=== PATIENT | female | born 1990 | race African-American/Black ===

== ENCOUNTER → 2021-06-08 09:38 | Outpatient (BNVA) | payer MEDICAID, SELFPAY | PROVIDERS: PCP Surgery; Visit Provider Physician Assistant Surgical | DX: Z13.89 Encounter for screening for other disorder (principal) ==

== ENCOUNTER → 2021-06-10 10:02 | Outpatient (BNVA) | payer MEDICAID, SELFPAY | PROVIDERS: PCP Internal Medicine; Visit Provider Physician Assistant Surgical | DX: E66.01 Morbid (severe) obesity due to excess calories (principal); Z68.41 Body mass index [BMI] 40.0-44.9, adult | CPT/HCPCS: 99202 ==

== ENCOUNTER 2021-06-21 08:21 | Outpatient (REF) | payer MEDICAID, SELFPAY ==
--- NOTE | ~2021-06-21 | XR_ITS ---
EXAMINATION: XR CHEST CLINICAL INFORMATION: Bariatric service evaluation. E66.01 COMPARISON: None TECHNIQUE: 2 views of the chest were obtained. FINDINGS: The lungs are clear. There is no airspace consolidation or groundglass opacity. The costophrenic sulci are clear. The heart is normal in size. The hilar and mediastinal contours are normal. There is gentle levocurvature lower thoracic spine. XR/XR chest 2V IMPRESSION: Unremarkable examination.
--- NOTE | 2021-06-21 08:46 | ECG_ITS ---
Test Reason : OBESITY Blood Pressure : / mmHG Vent. Rate : 073 BPM Atrial Rate : 073 BPM P-R Int : 158 ms QRS Dur : 070 ms QT Int : 370 ms P-R-T Axes : 024 044 -03 degrees QTc Int : 407 ms Normal sinus rhythm Normal ECG No previous ECGs available Referred By: Juarez Good Electronically Signed By:CAROLIN MENCHACA MD
[2021-06-21 09:07] LABS: MANUAL DIFF FLAG NO
[2021-06-21 09:43] LABS: Basophils Percent Auto 0.6 % (0-2); Eosinophils Absolute Auto 0.2 X10*3/uL (0.0-0.4); Hematocrit 35.4 % (37.0-47.0); Hemoglobin 12.6 g/dl (12.0-16.0); Imm Gran Abs Auto 0.01 X10*3/uL (0.00-0.03); Imm Gran Pct Auto 0.1 % (0.0-0.4); Lymphocytes Absolute Auto 2.9 X10*3/uL (1.2-4.9); Lymphocytes Percent Auto 40.2 % (20-40); Mean Corpuscular HGB Conc 35.6 g/dl (31.0-35.0); Mean Corpuscular Hemoglobin 26.5 pg (27.0-33.0); Mean Corpuscular Volume 74.5 fL (80.0-98.0); Monocytes Absolute Auto 0.6 X10*3/uL (0.1-1.2); Monocytes Percent Auto 8.9 % (2-11); Neutrophils Absolute Auto 3.4 x10*3/uL (2.0-8.3); Neutrophils Percent Auto 47.2 % (45-73); Platelet Count 258 X10*3/uL (160-400); Red Blood Count 4.75 X10*6/uL (4.20-5.50); Red Cell Distribution Width 13.7 % (11.0-16.0); White Blood Count 7.1 X10*3/uL (4.8-10.8)
[2021-06-21 10:07] LABS: Alanine Aminotransferase 14 U/L (0-31); Albumin Level 4.1 g/dL (3.5-5.0); Alkaline Phosphatase 48 U/L (39-117); Anion Gap 11 (12-20); Aspartate Amino Transferase 18 U/L (5-31); Bilirubin Total 0.5 mg/dL (0.0-1.0); Blood Urea Nitrogen 15 mg/dL (9-16); C Reactive Protein 0.52 mg/dL (< or = 0.50); Calcium 9.4 mg/dL (8.4-10.2); Carbon Dioxide 27 mmol/L (22-29); Chloride 105 mmol/L (96-108); Cholesterol 184 mg/dL; Estimated Glomerular Filt Rate > 60; Glucose Random 116 mg/dL (60-115); HDL Cholesterol 56 mg/dL; Iron 68 mcg/dL (30-160); LDL Cholesterol Calculated 111 mg/dl; Percent Iron Saturation 21 % (15-50); Potassium 4.1 mmol/L (3.3-5.1); Sodium 139 mmol/L (135-145); Total Iron Binding Capacity 317 mcg/dL (228-428); Total Protein 7.5 g/dL (6.5-8.0); Triglycerides 85 mg/dL; Unsaturated Iron Binding 249 ug/dL
[2021-06-21 10:36] LABS: Ferritin 140 ng/mL (10-122); TSH reflex Free T4 1.49 uIU/mL (0.32-4.0); Vitamin D 25-OH Total 25.5 ng/mL (>30)
[2021-06-21 10:44] LABS: Estimated Average Glucose 120 mg/dL; Hemoglobin A1c % 5.8 %
[2021-06-21 11:20] LABS: Insulin 23 uU/mL (2-29)
[2021-06-21 11:31] LABS: Folate 16.6 ng/mL (> or = 4.0); Vitamin B12 320 pg/mL (200-900)
[2021-06-22 12:37] LABS: Calcium (PTHI) 9.2 mg/dL (8.6-10.2); PTHI 46 pg/mL (16-77)
[2021-06-22 14:38] LABS: H Pylori Breath Test Negative (Negative)
[2021-06-25 06:11] LABS: Zinc 92 mcg/dL (60-130)
[2021-06-26 07:46] LABS: Vitamin B1 9 nmol/L (8-30)
[2021-06-29 17:32] LABS: Vitamin A 46 mcg/dL (38-98)
== END 2021-06-21 08:22 | disposition home or self-care (01) ==
LOC: HO.LAB 08:21
PROVIDERS: PCP Internal Medicine; Visit Provider Physician Assistant Surgical
DX: Z01.818 Encounter for other preprocedural examination (principal); E66.01 Morbid (severe) obesity due to excess calories
CPT/HCPCS: 36415; 71046; 80053; 80061; 82306; 82607; 82728; 82746; 83013; 83036; 83525; 83540; 83970; 84425; 84443; 84590; 84630; 85025; 86140; 93005; 99211

== ENCOUNTER → 2021-06-24 08:17 | Outpatient (BNVA) | payer MEDICAID, SELFPAY | PROVIDERS: PCP Internal Medicine; Visit Provider Surgery | DX: Z13.89 Encounter for screening for other disorder (principal) ==

== ENCOUNTER → 2021-06-29 16:07 | Outpatient (BNVA) | payer OTHER, MEDICAID, SELFPAY | PROVIDERS: PCP Internal Medicine; Visit Provider Counselor Mental Health | DX: F43.20 Adjustment disorder, unspecified (principal); E66.01 Morbid (severe) obesity due to excess calories | CPT/HCPCS: 90791 ==

== ENCOUNTER → 2021-06-30 08:36 | Outpatient (BNVA) | payer OTHER, MEDICAID, SELFPAY | PROVIDERS: PCP Internal Medicine; Visit Provider Surgery | DX: Z13.89 Encounter for screening for other disorder (principal) ==

== ENCOUNTER → 2021-07-09 07:57 | Outpatient (BNVA) | payer MEDICAID, SELFPAY | PROVIDERS: PCP Internal Medicine; Visit Provider Dietitian, Registered | DX: E66.01 Morbid (severe) obesity due to excess calories (principal) | CPT/HCPCS: 97802 ==

== ENCOUNTER → 2023-03-02 15:33 | Outpatient (BNVA) | payer OTHER, SELFPAY | PROVIDERS: PCP Internal Medicine; Visit Provider Physician Assistant Surgical ==

== ENCOUNTER 2023-03-24 08:11 | Outpatient (AMB) | payer OTHER, SELFPAY ==
--- NOTE | 2023-03-24 11:30 | MHC.OFFVISWM ---
Intake VS Expanded 03/24/23 11:39 Height 5 ft 5.5 in Weight 253 lb BMI 41.5 Body Fat % 43.6 Body Fat Mass 110.2 Fat Free Mass 142.6 Visceral Fat Rating 12 Body Water % 40.5 Body Water Mass 102.2 Basal Metabolic Rate/Score 2,015 Intake Visit Reasons: TV Re-Est SWL BMI 41.5 Allergies No Known Allergies Allergy (Verified 03/24/23 11:30) Medication List - Last Reconciled 03/24/23 by Murtaza Pelayo MD [id number] 600-50-300 mg (Triumeq) 1 tab PO DAILY HPI TV Re-Est SWL BMI 41.5 HPI Details Start time: 11.25am, End time: 12.05pm ?I spent 35 minutes speaking with the patient on the phone plus an additional 5 minutes reviewing and updating records for a total of 40 minutes HPI Comments History of Present Illness Details [place] [facility] Wakes: 9.30am, Sleeps: 1am Breakfast: 10am (sausage with eggs, waffles, wallisian toast) Lunch: 2pm (fast food, pizza, burger Dinner: 8pm (pasta with meat, salmon with mashed potatoes) Snacks: 12pm (cookies, gold fish), 4pm (cookies, gold fish) Exercise: gym membership Fluids: Coffee none, tea: none, soda: none, juice: daily (orange,lemonade), ETOH: 2/month (1-2 glases of wine) PFSH Surgical History (Updated 03/03/23 @ 08:13 by Rosie Engel [facility]) Hx of section Hx of dilation and curettage Family History Mother Migraines Father No problems noted. Sister Asthma Sister Asthma Sister Asthma Brother No problems noted. Brother No problems noted. Brother Asthma Son No problems noted. Social History Alcohol intake: current Alcohol intake frequency: a few times a month Patient Tobacco Use Status: Former Tobacco user Assessment & Plan Assessment & Plan (1) Morbid obesity: Code(s): E66.01 - Morbid (severe) obesity due to excess calories Plan: 1.? Plan for lap sleeve gastrectomy. If diaphragmatic or ventral hernias are present at time of surgery, these will be repaired laparoscopically as well. Risks and complications were discussed in detail including possible conversion to an open procedure, anastomotic leak, bleeding requiring transfusion, small bowel obstruction, , DVT and pulmonary embolism, cardiac, or pulmonary complications, as watermaster complications such as anastomotic ulcer, insufficient weight loss and vitamin deficiencies. I emphasized the importance of close follow-up, adherence to instructions and good communication. 2. Nutritional counseling. Start with 2 Isopure INFUSIONS protein (buy at [employer], [place], [employer], [employer]) shakes (HALF scoop in 8oz water) at 10am-12pm and 1pm-3pm, 1 protein bar (Zone Perfect protein bars, buy at [employer], [employer], [employer], or [employer]) at 4pm-6pm, dinner at 7pm (10 forks of protein and 10 forks of salad/vegetables), one more protein bar after dinner at 9pm-11pm and another HALF protein bar at 12am-1am. So you do 2 protein shakes, 2.5 protein bars and one meal per day. Meal to include lean meat (beef, fish, pork, turkey, chicken), or maori yogurt, or egg whites, or beans with a salad with olive oil and fruits (berries, pears, apples, kiwi). Avoid salt, breads, potatoes, rice, pasta, desserts. 3. Each shake would be drunk slowly, like coffee in a period of 2 hours. 4. Cut each bar in 4 pieces and eat each piece in 30min ?to make each bar last 2 hours. 5. I emphasized the importance of measuring accurately the food portion and measure it when serving the food in plate 6. The meal portions include 10 full-size forks of meat and 10 full-size forks of salad. You always eat the meat portion but you can replace up to 5 forks for salad/vegetables with rice, potatoes or pasta, or a fruit ?if you like. The less you do it the better weight loss will be. 7. One full-size fork is what it can be scooped on the fork without falling aside and not what can be bit with the fork. Use regular forks like those you find in a typical restaurant. 8.? Please send me weight measurements as soon as possible and then once a week. Always include your diet and exercise plan. 9. Start treadmill with an incline of 2.0 and speed of 3.0. Increase incline by 1 every 3 min to a max incline of 8.0, stay 3min at 8.0 and then return to 2.0 and repeat same steps until calorie goal is met. Goal is to burn 2000 calories per week on exercise, which means either 300 calories daily, or 400 calories 5 days per week, or 500 calories 4 days per week, or 650 calories 3 days per week. Start also weight exercises with 20-30lbs for chest/shoulders/abdomen and 40-50lbs for thighs doing 2 sets of 15 repetitions each. 10. Alternatively start stationary bike at a resistance level of 4.0 Increase level by 1.0 every 3 min to a max level of 10.0. Stay at this level for 3 min and then return to level 4.0 and repeat same steps until 300 calories are burned. Velocity target is 12mph and heart rate is 145 bpm. Goal is to burn 2000 calories per week on exercise 11. The best choice would be to purchase a stationary bike at home that can track calories. Let me know if you do so I can give you an exercise plan. 12.?It is important of avoiding and for at least 18 months postoperatively and has been discussed at the infosession. 13. Goal is to lose at least 1.5-2lbs per week 14. Goal to lose 10% of your weight before surgery, which is about 25lbs. Ultimate weight goal: 228lbs before surgery 15. Please follow the diet plan exactly without any change. If you don't like something about the plan or you feel hungry you need to communicate with me so I can help you revise the plan. You should not change the plan yourself. Orders: Orders Hemoglobin A1c Today B20 - Human immunodeficiency virus [HIV] disease, E66.01 - Morbid (severe) obesity due to excess calories H Pylori Breath Test Today B20 - Human immunodeficiency virus [HIV] disease, E66.01 - Morbid (severe) obesity due to excess calories Complete Blood Count Auto Diff Today B20 - Human immunodeficiency virus [HIV] disease, E66.01 - Morbid (severe) obesity due to excess calories Lipid Panel Today B20 - Human immunodeficiency virus [HIV] disease, E66.01 - Morbid (severe) obesity due to excess calories Vitamin B12 and Folate Today B20 - Human immunodeficiency virus [HIV] disease, E66.01 - Morbid (severe) obesity due to excess calories Zinc Today B20 - Human immunodeficiency virus [HIV] disease, E66.01 - Morbid (severe) obesity due to excess calories C Reactive Protein Today B20 - Human immunodeficiency virus [HIV] disease, E66.01 - Morbid (severe) obesity due to excess calories Vitamin B1 Today B20 - Human immunodeficiency virus [HIV] disease, E66.01 - Morbid (severe) obesity due to excess calories Vitamin A Today B20 - Human immunodeficiency virus [HIV] disease, E66.01 - Morbid (severe) obesity due to excess calories Vitamin D 25-OH Total Today B20 - Human immunodeficiency virus [HIV] disease, E66.01 - Morbid (severe) obesity due to excess calories US abdomen comp w elastography Today B20 - Human immunodeficiency virus [HIV] disease, E66.01 - Morbid (severe) obesity due to excess calories ECG 12 lead EKG Today B20 - Human immunodeficiency virus [HIV] disease, E66.01 - Morbid (severe) obesity due to excess calories Insulin Today B20 - Human immunodeficiency virus [HIV] disease, E66.01 - Morbid (severe) obesity due to excess calories IRON PROFILE Today B20 - Human immunodeficiency virus [HIV] disease, E66.01 - Morbid (severe) obesity due to excess calories Comprehensive Met. Panel Today B20 - Human immunodeficiency virus [HIV] disease, E66.01 - Morbid (severe) obesity due to excess calories TSH reflex Free T4 Today B20 - Human immunodeficiency virus [HIV] disease, E66.01 - Morbid (severe) obesity due to excess calories Ferritin Today B20 - Human immunodeficiency virus [HIV] disease, E66.01 - Morbid (severe) obesity due to excess calories XR chest 2V Today B20 - Human immunodeficiency virus [HIV] disease, E66.01 - Morbid (severe) obesity due to excess calories FL upper GI w air Today B20 - Human immunodeficiency virus [HIV] disease, E66.01 - Morbid (severe) obesity due to excess calories Referrals Behavioral Health Referral B20 - Human immunodeficiency virus [HIV] disease, E66.01 - Morbid (severe) obesity due to excess calories Nutrition/Dietitian Referral B20 - Human immunodeficiency virus [HIV] disease, E66.01 - Morbid (severe) obesity due to excess calories Telehealth Telehealth Location of provider rendering services: practice address Location of patient: address on file Patient Identification confirmed using: Name, : Yes Telehealth method: voice only Patient verbally consented to treatment: Yes Patient verbally consented to billing insurance company: Yes Patient informed of any privacy concerns related to visit: Yes Minutes spent on Phone/Video with Pt.: 40 Coding Level of Care Code Tele New Pt Level 3 (08939) Diagnoses Morbid obesity E66.01 Time Spent (min) 40
[2023-03-24 11:39] VITALS: BMI 41.5
== END 2023-03-24 12:06 | disposition home or self-care (01) ==
LOC: HO.HBS 08:11
PROVIDERS: PCP Internal Medicine; Visit Provider Surgery
DX: E66.01 Morbid (severe) obesity due to excess calories (principal)
CPT/HCPCS: 99215

== ENCOUNTER → 2023-03-24 08:11 | Outpatient (BNVA) | payer OTHER, SELFPAY | PROVIDERS: PCP Internal Medicine; Visit Provider Surgery ==

== ENCOUNTER 2023-04-07 15:11 | Outpatient (REF) | payer OTHER, SELFPAY ==
--- NOTE | ~2023-04-07 | XR_ITS ---
EXAMINATION: XR CHEST CLINICAL INFORMATION: Morbid obesity did access catheters. COMPARISON: June 21, 2021. TECHNIQUE: 2 views of the chest were obtained. FINDINGS: Lung volumes are low. There is no gross pneumothorax. Heart size is normal. No pleural effusion. No focal consolidation to suggest pneumonia. Minimal degenerative changes in the thoracic spine. XR/XR chest 2V IMPRESSION: No evidence of pneumonia.
--- NOTE | 2023-04-07 15:16 | ECG_ITS ---
Test Reason : MORBID OBESITY Blood Pressure : / mmHG Vent. Rate : 082 BPM Atrial Rate : 082 BPM P-R Int : 162 ms QRS Dur : 070 ms QT Int : 358 ms P-R-T Axes : 022 052 -11 degrees QTc Int : 418 ms Normal sinus rhythm Nonspecific T wave abnormality Abnormal ECG When compared with ECG of 21-JUN-2021 08:46, No significant change was found Referred By: Murtaza Pelayo Electronically Signed By:Sascha Joyner
[2023-04-07 15:35] LABS: MANUAL DIFF FLAG NO
[2023-04-07 16:25] LABS: Basophils Absolute Auto 0.1 X10*3/uL (0.0-0.2); Basophils Percent Auto 0.8 % (0-2); Eosinophils Absolute Auto 0.3 X10*3/uL (0.0-0.4); Eosinophils Percent Auto 3.7 % (0-4); Hematocrit 38.2 % (37.0-47.0); Hemoglobin 13.4 g/dl (12.0-16.0); Imm Gran Abs Auto 0.02 X10*3/uL (0.00-0.03); Imm Gran Pct Auto 0.2 % (0.0-0.4); Lymphocytes Absolute Auto 3.9 X10*3/uL (1.2-4.9); Lymphocytes Percent Auto 42.4 % (20-40); Mean Corpuscular HGB Conc 35.1 g/dl (31.0-35.0); Mean Corpuscular Hemoglobin 25.9 pg (27.0-33.0); Mean Corpuscular Volume 73.7 fL (80.0-98.0); Mean Platelet Volume 10.2 fL (9.4-12.3); Monocytes Absolute Auto 0.7 X10*3/uL (0.1-1.2); Monocytes Percent Auto 7.4 % (2-11); Neutrophils Absolute Auto 4.2 x10*3/uL (2.0-8.3); Neutrophils Percent Auto 45.5 % (45-73); Platelet Count 311 X10*3/uL (160-400); Red Blood Count 5.18 X10*6/uL (4.20-5.50); Red Cell Distribution Width 13.3 % (11.0-16.0); White Blood Count 9.2 X10*3/uL (4.8-10.8)
[2023-04-07 16:34] LABS: Estimated Average Glucose 114 mg/dL; Hemoglobin A1c % 5.6 % (<6.0)
[2023-04-07 17:09] LABS: Alanine Aminotransferase 14 U/L (0-31); Albumin Level 4.4 g/dL (3.5-5.0); Alkaline Phosphatase 57 U/L (39-117); Anion Gap 13 (12-20); Aspartate Amino Transferase 16 U/L (5-31); Bilirubin Total 0.4 mg/dL (0.0-1.0); Blood Urea Nitrogen 10 mg/dL (9-16); C Reactive Protein 0.78 mg/dL (< or = 0.50); Calcium 9.5 mg/dL (8.4-10.2); Carbon Dioxide 26 mmol/L (22-29); Chloride 106 mmol/L (96-108); Cholesterol 193 mg/dL (<200); Estimated Glomerular Filt Rate > 60; Glucose Random 106 mg/dL (60-115); HDL Cholesterol 56 mg/dL (>40); Iron 71 mcg/dL (30-160); LDL Cholesterol Calculated 118 mg/dL (<100); Percent Iron Saturation 26 % (15-50); Potassium 3.7 mmol/L (3.3-5.1); Sodium 141 mmol/L (135-145); Total Iron Binding Capacity 277 mcg/dL (228-428); Total Protein 8.1 g/dL (6.5-8.0); Triglycerides 97 mg/dL (<150); Unsaturated Iron Binding 206 ug/dL
[2023-04-07 17:27] LABS: Ferritin 209 ng/mL (10-122); Insulin 18 uU/mL (2-29); TSH reflex Free T4 0.62 uIU/mL (0.32-4.0); Vitamin D 25-OH Total 18.1 ng/mL (>30)
[2023-04-07 17:36] LABS: Folate 10.8 ng/mL (> or = 4.0); Vitamin B12 443 pg/mL (200-900)
[2023-04-10 16:53] LABS: Zinc 93 mcg/dL (60-130)
[2023-04-11 20:09] LABS: Vitamin A 51 mcg/dL (38-98)
[2023-04-13 06:04] LABS: Vitamin B1 12 nmol/L (8-30)
== END 2023-04-07 15:12 | disposition home or self-care (01) ==
LOC: HO.XRAY 15:11
PROVIDERS: Visit Provider Surgery
DX: E66.01 Morbid (severe) obesity due to excess calories (principal); B20 Human immunodeficiency virus [HIV] disease
CPT/HCPCS: 36415; 71046; 80053; 80061; 82306; 82607; 82728; 82746; 83036; 83525; 83540; 84425; 84443; 84590; 84630; 85025; 86140; 93005

== ENCOUNTER → 2023-04-07 15:16 | Outpatient (BNV) | payer OTHER, SELFPAY | PROVIDERS: Visit Provider Internal Medicine Cardiovascular Disease | DX: R94.31 Abnormal electrocardiogram [ECG] [EKG] (principal) | CPT/HCPCS: 93010 ==

== ENCOUNTER 2023-04-11 14:00 | Outpatient (REF) | payer OTHER, SELFPAY ==
[2023-04-13 11:37] LABS: H Pylori Breath Test Negative (Negative)
== END 2023-04-11 14:01 | disposition home or self-care (01) ==
LOC: HO.LNP 14:00
PROVIDERS: Surgery; PCP Internal Medicine; Visit Provider Physician Assistant Surgical
DX: Z11.2 Encounter for screening for other bacterial diseases (principal); E66.01 Morbid (severe) obesity due to excess calories; B20 Human immunodeficiency virus [HIV] disease
CPT/HCPCS: 83013; 99211

== ENCOUNTER 2023-04-17 08:11 | Outpatient (AMB) | payer OTHER, SELFPAY ==
--- NOTE | 2023-04-17 12:15 | MHC.OFFVISWM ---
Intake VS Expanded 04/17/23 12:24 Height 5 ft 5.5 in Weight 250 lb 6 oz BMI 41.0 Body Fat % 54.2 Body Fat Mass 135.8 Fat Free Mass 114.8 Visceral Fat Rating 22 Body Water % 31.4 Body Water Mass 78.6 Intake Visit Reasons: TV Follow Up SWL - 1ST Allergies No Known Allergies Allergy (Verified 03/24/23 11:30) HPI TV Follow Up SWL - 1ST HPI Details Start time: 12.10pm, End time: 12.30pm ?I spent 15 minutes speaking with the patient on the phone plus an additional 5 minutes reviewing and updating records for a total of 20 minutes HPI Comments History of Present Illness Details Overall weight loss: 2.4lbs, or 0.95% TBWL Is doing 2 Isopure Infusions protein shakes (1/2 scoop in water), 2.5 Zone Perfect protein bars and one meal (10 forks of protein and 10 forks of salad or vegetables) Exercise: Is doing Cycling classes PFSH Surgical History (Updated 03/03/23 @ 08:13 by Rosie Engel [facility]) Hx of section Hx of dilation and curettage Family History Mother Migraines Father No problems noted. Sister Asthma Sister Asthma Sister Asthma Brother No problems noted. Brother No problems noted. Brother Asthma Son No problems noted. Social History Alcohol intake: current Alcohol intake frequency: a few times a month Patient Tobacco Use Status: Former Tobacco user Assessment & Plan Assessment & Plan (1) Morbid obesity: Code(s): E66.01 - Morbid (severe) obesity due to excess calories Plan: 1. Continue same nutritional plan of re Infusions protein shakes (1/2 scoop in water), 2.5 Zone Perfect protein bars and one meal (10 forks of protein and 10 forks of salad or vegetables) 2. Exercise: continue Cycling classes 3 days per week , tracking the calories you burn for at least 500 calories per work-out 3. Consider purchasing a stationary bike at home because it will allow you to exercise daily 4. Continue to send me weight measurements weekly on Telehealth Telehealth Location of provider rendering services: practice address Location of patient: address on file Patient Identification confirmed using: Name, : Yes Telehealth method: voice only Patient verbally consented to treatment: Yes Patient verbally consented to billing insurance company: Yes Patient informed of any privacy concerns related to visit: Yes Coding Level of Care Code Tele Est Pt Level 3 (74980) Diagnoses Morbid obesity E66.01 Time Spent (min) 20
[2023-04-17 12:24] VITALS: BMI 41.0
== END 2023-04-17 12:30 | disposition home or self-care (01) ==
LOC: HO.HBS 08:12
PROVIDERS: PCP Internal Medicine; Visit Provider Surgery
DX: E66.01 Morbid (severe) obesity due to excess calories (principal)
CPT/HCPCS: 99213

== ENCOUNTER → 2023-04-17 08:11 | Outpatient (BNVA) | payer OTHER, SELFPAY | PROVIDERS: PCP Internal Medicine; Visit Provider Surgery ==

== ENCOUNTER 2023-04-21 15:44 | Outpatient (AMB) | payer OTHER, SELFPAY ==
--- NOTE | 2023-04-21 15:22 | MHC.AMNUTRGE ---
Intake Intake Visit Reasons: VIDEO Re-Est Nutrition Initial SWL Allergies No Known Allergies Allergy (Verified 03/24/23 11:30) HPI Nutrition Presentation Details Re-EST SWL - last nutrition appt in June 2021 Reason for consult elevated BMI Diet Assmnt Details Doing the bars and shakes (isopure infusions) ; is really happy with this and has no complaints. is creative with dinner meals, stuffed peppers, taco bowls, lettuce wraps, etc. interested in more recipes. ordered a stationary bike, will be delivered this coming week SWL online classes: completed , reviewed . has a close friend who works at [facility] and had surgery with us recently. Dietary counseling reduction Diagnosis Nutrition problem #1 overweight/obesity As related to (etiology) #1 excess energy intake and physical inactivity As evidenced by (sign/symptom) #1 high BMI Monitoring/Goals Nutrition problem monitoring total energy intake, level of knowledge/skill, total PRO intake, total CHO intake and weight Outcome progress progressing Learning/Education Readiness to learn good Stages of change action Educational materials provided Yes Most Recent Diabetes Results: Cholesterol 193 mg/dL (<200) 04/07/23 HDL Cholesterol 56 mg/dL (>40) 04/07/23 Triglycerides 97 mg/dL (<150) 04/07/23 Creatinine 0.85 mg/dL (0.5-1.4) 04/07/23 Blood Urea Nitrogen 10 mg/dL (9-16) 04/07/23 Sodium 141 mmol/L (135-145) 04/07/23 Potassium 3.7 mmol/L (3.3-5.1) 04/07/23 Chloride 106 mmol/L (96-108) 04/07/23 Carbon Dioxide 26 mmol/L (22-29) 04/07/23 Calcium 9.5 mg/dL (8.4-10.2) 04/07/23 AST 16 U/L (5-31) 04/07/23 ALT 14 U/L (0-31) 04/07/23 Total Protein 8.1 g/dL (6.5-8.0) H 04/07/23 Albumin 4.4 g/dL (3.5-5.0) 04/07/23 PFSH Surgical History (Updated 03/03/23 @ 08:13 by Rosie Engel CMA) Hx of section Hx of dilation and curettage Family History Mother Migraines Father No problems noted. Sister Asthma Sister Asthma Sister Asthma Brother No problems noted. Brother No problems noted. Brother Asthma Son No problems noted. Social History Alcohol intake: current Alcohol intake frequency: a few times a month Patient Tobacco Use Status: Former Tobacco user Assessment & Plan Assessment & Plan (1) Morbid obesity: Code(s): E66.01 - Morbid (severe) obesity due to excess calories Plan pt is cleared from a nutrition standpoint for bariatric surgery Telehealth Telehealth Location of provider rendering services: other (home address , [facility] ) Location of patient: address on file Patient Identification confirmed using: Name, : Yes Telehealth method: voice only Patient verbally consented to treatment: Yes Patient verbally consented to billing insurance company: Yes Patient informed of any privacy concerns related to visit: Yes Minutes spent on Phone/Video with Pt.: 20 Coding Level of Care Code Nutr Indiv Intake (02033) Diagnoses Morbid obesity E66.01 Time Spent (min) 20
== END 2023-04-21 16:00 | disposition home or self-care (01) ==
LOC: HO.HBS 15:45
PROVIDERS: PCP Internal Medicine; Visit Provider Dietitian, Registered
DX: E66.01 Morbid (severe) obesity due to excess calories (principal)

== ENCOUNTER → 2023-04-21 15:44 | Outpatient (BNVA) | payer OTHER, SELFPAY | PROVIDERS: PCP Internal Medicine; Visit Provider Dietitian, Registered | DX: E66.01 Morbid (severe) obesity due to excess calories (principal) | CPT/HCPCS: 97802 ==

== ENCOUNTER 2023-05-15 08:19 | Outpatient (AMB) | payer OTHER, SELFPAY ==
--- NOTE | 2023-05-15 13:49 | A.OFFVIS_ITS ---
Intake VS Expanded 05/15/23 13:59 Height 5 ft 5.5 in Weight 242 lb 6 oz BMI 39.7 Body Fat % 52.1 Body Fat Mass 126.3 Fat Free Mass 116.2 Visceral Fat Rating 21 Body Water % 32.8 Body Water Mass 79.5 Basal Metabolic Rate/Score 1,518 Intake Visit Reasons: TV Follow Up SWL Allergies No Known Allergies Allergy (Verified 03/24/23 11:30) HPI TV Follow Up SWL HPI Details Start time: 11.42pm, End time: 2.02pm ?I spent 15 minutes speaking with the patient on the phone plus an additional 5 minutes reviewing and updating records for a total of 20 minutes HPI Comments History of Present Illness Details Overall weight loss: 10.4lbs, or 4.11% TBWL) Is doing 2 Isopure Infusions protein shakes (1/2 scoop each in water), 2 Zone Perfect protein bars and on meal (10 forks of protein and 10 forks of salad or vegetables) Exercise: is doing treadmill (speed 3mph, incline 2-8) for 240 calories daily PFSH Surgical History (Updated 03/03/23 @ 08:13 by Rosie Engel CMA) Hx of section Hx of dilation and curettage Family History Mother Migraines Father No problems noted. Sister Asthma Sister Asthma Sister Asthma Brother No problems noted. Brother No problems noted. Brother Asthma Son No problems noted. Social History Alcohol intake: current Alcohol intake frequency: a few times a month Patient Tobacco Use Status: Former Tobacco user Assessment & Plan Assessment & Plan (1) Obesity: Code(s): E66.9 - Obesity, unspecified Qualifiers: Obesity type: due to excess calories Obesity classification: adult class 2 (BMI 35 - 39.9) Serious obesity comorbidity presence: with serious comorbidity Body mass index: BMI 39.0-39.9 Qualified Code(s): E66.01 - Morbid (severe) obesity due to excess calories; Z68.39 - Body mass index [BMI] 39.0- 39.9, adult Plan: 1. Continue same nutritional plan of 2 Isopure Infusions protein shakes (1/2 scoop each in water), 2 Zone Perfect protein bars and on meal (10 forks of protein and 10 forks of salad or vegetables) 2. Exercise: continue treadmill (speed 3mph, incline 2-8) but increase to 300 calories daily. Goal is to burn 2000 calories per week on aerobic exercise 3. Send me weight measurements weekly on Mondays Telehealth Telehealth Location of provider rendering services: practice address Location of patient: address on file Patient Identification confirmed using: Name, : Yes Telehealth method: voice only Patient verbally consented to treatment: Yes Patient verbally consented to billing insurance company: Yes Patient informed of any privacy concerns related to visit: Yes Minutes spent on Phone/Video with Pt.: 20 Coding Level of Care Code Tele Est Pt Level 3 (30567) Diagnoses Class 2 severe obesity due to excess calories with serious comorbidity and body mass index (BMI) of 39.0 to 39.9 in adult E66.01; Z68.39 Obesity type: due to excess calories Obesity classification: adult class 2 (BMI 35 - 39.9) Serious obesity comorbidity presence: with serious comorbidity Body mass index: BMI 39.0-39.9 Time Spent (min) 20
[2023-05-15 13:59] VITALS: BMI 39.7
== END 2023-05-15 14:03 | disposition home or self-care (01) ==
LOC: HO.HBS 08:19
PROVIDERS: PCP Internal Medicine; Visit Provider Surgery
DX: E66.01 Morbid (severe) obesity due to excess calories (principal); Z68.39 Body mass index [BMI] 39.0-39.9, adult
CPT/HCPCS: 99213

== ENCOUNTER 2023-05-15 08:55 | Outpatient (REF) | payer OTHER, SELFPAY ==
--- NOTE | ~2023-05-15 | US_ITS ---
EXAMINATION: US COMPLETE ABDOMEN WITH LIVER ELASTOGRAPHY CLINICAL INFORMATION: Morbid (severe) obesity COMPARISON: None available. TECHNIQUE: Real-time imaging of the abdominal viscera. Noninvasive ultrasound liver fibrosis assessment is performed using Damian ElastPQ point quantification shear wave elastography (2D-SWE) with a C5-2 MHz transducer. Multiple elastography samples are obtained. FINDINGS: PANCREAS: The visualized pancreatic head and body are normal in appearance. The remainder of the pancreas is obscured from visualization by the overlying bowel gas. ABDOMINAL AORTA: The proximal, middle, and distal aortic segments are normal in caliber. INFERIOR VENA CAVA: Visualized portions are normal. LIVER: The liver demonstrates normal size and contour with increased echogenicity. No focal lesion or intrahepatic biliary duct dilatation. The right lobe measures 16.1 cm in length. The left lobe measures 12.4 cm in length. Portal flow is towards the liver (hepatopetal). Shear wave liver elastography median stiffness is 1.61 m/s (reference: normal median stiffness is 1.3 m/s or less). IQR/median stiffness to assess sampling precision is 0.09 (reference: good quality data set is IQR/median stiffness of 0.15 or less). GALLBLADDER: The gallbladder is physiologically distended without evidence of stones, sludge, polyps, wall thickening or pericholecystic fluid. COMMON BILE DUCT: Normal in caliber measuring 0.2 cm in diameter. RIGHT KIDNEY: No hydronephrosis. No renal calculi or focal parenchymal lesions. The kidney measures 10.9 cm in maximum dimension. LEFT KIDNEY: No hydronephrosis. No renal calculi or focal parenchymal lesions. The kidney measures 12.2 cm in maximum dimension. SPLEEN: The spleen measures 10.3 cm in maximum dimension. FREE FLUID: None. US/US abdomen comp w elastography IMPRESSION: 1. Diffuse increased echogenicity of the liver suggestive of infiltrative hepatocellular disease such as steatosis. 2. Liver elastography: In the absence of other known clinical signs, measurements rule out compensated advanced chronic liver disease. If there are known clinical signs, further testing may be needed for confirmation. REFERENCE: Society of Radiologists in Ultrasound Liver Stiffness Thresholds (2020): LIVER STIFFNESS THRESHOLDS: *Liver Stiffness equal or less than 1.3 m/s: High probability of being normal. *Liver Stiffness less than 1.7 m/s: In the absence of other known clinical signs, rules out compensated advanced chronic liver disease. *Liver Stiffness 1.7-2.1 m/s: Suggestive of compensated advanced chronic liver disease but need further test for confirmation. *Liver Stiffness over 2.1 m/s: Rules in compensated advanced chronic liver disease. *Liver Stiffness over 2.4 m/s: Suggestive of clinically significant portal hypertension. QUALITY OF DATA SET: *IQR/Median value equal or less than 0.15 implies a quality data set. *IQR/Median value over 0.15 implies a poor quality data set. SIGNIFICANT CHANGE FROM PRIOR EXAM: Significant change if liver stiffness measurement is 10% or greater from prior exam. OTHER CONSIDERATIONS: The stage of liver fibrosis may be overestimated in the setting of acute hepatitis, liver inflammation, elevated liver function tests, hepatic vascular congestion, obstructive cholestasis, non-fasting state, and infiltrative diseases such as amyloidosis and lymphoma. In some patients with NAFLD, the liver stiffness thresholds for compensated advanced chronic liver disease may be lower. In causes other than viral hepatitis and NAFLD, liver stiffness thresholds are not well established.
--- NOTE | 2023-05-15 08:59 | CA_ITS ---
Acquisition Time: 2023-05-15 09:09:08 Total Exercise Time: 00:05:31 Test Indications: OBESITY Medications: SEE H Protocol: HUBERT Max HR: 160 BPM 86% of Pred: 185 BPM Max BP: 164/084 mmHG Max Work Load: 7.0 METS Exercise stress test exercise 5 min 31 sec of Hubert protocol achieving 86%, with mild to moderate SOB, without chest discomfort, with isolated PAC, with normotensive response to exercise. without EKG changes. Breathing returned to baseline with rest. Test reviewed with Dr. Joyner. Referred By: Murtaza Pelayo Overread By: Xiao Roman
== END 2023-05-15 08:56 | disposition home or self-care (01) ==
LOC: HO.US 08:55
PROVIDERS: PCP Internal Medicine; Visit Provider Surgery
DX: E66.01 Morbid (severe) obesity due to excess calories (principal); B20 Human immunodeficiency virus [HIV] disease; R94.31 Abnormal electrocardiogram [ECG] [EKG]
CPT/HCPCS: 76700; 76981; 93017

== ENCOUNTER → 2023-05-15 08:59 | Outpatient (BNV) | payer OTHER, SELFPAY | PROVIDERS: PCP Internal Medicine; Visit Provider Nurse Practitioner | DX: R06.02 Shortness of breath (principal); I49.1 Atrial premature depolarization | CPT/HCPCS: 93016; 93018 ==

== ENCOUNTER 2023-05-19 09:09 | Outpatient (REF) | payer OTHER, SELFPAY ==
--- NOTE | ~2023-05-19 | FL_ITS ---
EXAMINATION: XR FLUOROSCOPY UPPER GI WITH AIR CLINICAL INFORMATION: Preop evaluation prior to bariatric surgery COMPARISON: None TECHNIQUE: Fluoroscopic air contrast upper GI examination was performed utilizing standard techniques with thin and thick barium and effervescent granules. Numerous spot images were obtained. FINDINGS: Dual and single contrast images of the esophagus demonstrate normal caliber, contour, and mucosal pattern. No evidence of stricture, mass, or ulcerations identified. Esophageal peristalsis is mildly disorganized. Small type I hiatus hernia. Gastroesophageal reflux is seen up to the thoracic inlet. Dual contrast and single contrast images of the stomach demonstrated a normal contour. There are multiple small well-circumscribed filling defects in the gastric body and fundus that may represent gastric polyps. No masses or ulcerations are seen. Contrast freely passed into the gastric antrum and duodenal bulb without delay. 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 There appeared to be at least one rounded filling defect in the first segment of the duodenum (RF 1-7, image 17 of 47), and possibly 2 additional rounded filling defects in the third and fourth segments (RF 1-8, image 21 of 67; RF 1-7, image 35 of 47). Duodenal folds appear thickened. The imaged proximal jejunum has a normal fold pattern and caliber. FLUOROSCOPY TIME: 3 minutes 15 seconds Number of Spot Images: 9 Number of Cine: 12 DOSE AREA PRODUCT: 2680 uGy-m2 (microgray-meter squared) FL/FL upper GI w air IMPRESSION: 1. Mildly disorganized esophageal peristalsis. Small type I hiatus hernia. 2. Moderate gastroesophageal reflux. 3. Multiple small well-circumscribed filling defects in the body and fundus of the stomach that may represent hyperplastic polyps. 4. Possible cloverleaf configuration of the duodenal bulb secondary to scarring, possibly from peptic disease. 5. There appear to be 3 duodenal filling defects involving the duodenal sweep, suggestive of underlying masses. There is a broad differential to include lipomas, adenomas and villous adenomas, adenomatous polyps, adenocarcinoma, GI stromal tumors, or possibly metastases (such as neuroendocrine). Recommend correlation with EGD. If this is inconclusive, cross-sectional imaging with CT could also be of benefit with IV and oral contrast. 6. Thickened duodenal folds suggested, for which peptic disease/duodenitis is a possibility, as well as Crohn's disease. If the patient is immunocompromised, this can be seen with Cryptosporidium and CMV infection. This procedure was performed by Tim Contreras PA-C, and supervised by Dr. Roman
== END 2023-05-19 09:10 | disposition home or self-care (01) ==
LOC: HO.XRAY 09:09
PROVIDERS: PCP Internal Medicine; Visit Provider Surgery
DX: E66.01 Morbid (severe) obesity due to excess calories (principal); B20 Human immunodeficiency virus [HIV] disease
CPT/HCPCS: 74246

== ENCOUNTER → 2023-05-19 09:12 | Outpatient (BNV) | payer OTHER, SELFPAY | PROVIDERS: PCP Internal Medicine; Visit Provider Physician Assistant Surgical | DX: E66.01 Morbid (severe) obesity due to excess calories (principal); Z01.818 Encounter for other preprocedural examination | CPT/HCPCS: 74246 ==

== ENCOUNTER 2023-06-19 09:08 | Outpatient (AMB) | payer OTHER, SELFPAY ==
--- NOTE | 2023-06-19 14:36 | A.OFFVIS_ITS ---
VS Expanded 06/19/23 14:49 Height 5 ft 5.5 in Weight 246 lb 2 oz BMI 40.3 Body Fat % 53.1 Body Fat Mass 130.7 Fat Free Mass 115.4 Visceral Fat Rating 22 Body Water % 32.2 Body Water Mass 79.2 Basal Metabolic Rate/Score 1,496 Intake Visit Reasons: TV Follow Up SWL Allergies No Known Allergies Allergy (Verified 03/24/23 11:30) HPI HPI TV Follow Up SWL: Details: Start time: 2.28pm, End time: 2.58pm ?I spent 25 minutes speaking with the patient on the phone plus an additional 5 minutes reviewing and updating records for a total of 30 minutes HPI Comments Details: Overall weight loss: 6.8lbs, or 2.69% TBWL Is doing one Isopure protein shake (1/2 scoop in water), 2 Zone Perfect protein bars, one meal (10 forks of protein and 10 forks of salad or vegetables) Exercise: is doing stationary bike for 300 calories PFSH Surgical History (Updated 03/03/23 @ 08:13 by Rosie Engel CMA) Hx of section Hx of dilation and curettage Family History Mother Migraines Father No problems noted. Sister Asthma Sister Asthma Sister Asthma Brother No problems noted. Brother No problems noted. Brother Asthma Son No problems noted. Social History Alcohol intake: current Alcohol intake frequency: a few times a month Patient Tobacco Use Status: Former Tobacco user Telehealth Telehealth Telehealth Platform: Telephone Location of provider rendering services: practice address Location of patient: address on file Patient Identification confirmed using: Name, : Yes Telehealth method: voice only Patient verbally consented to treatment: Yes Patient verbally consented to billing insurance company: Yes Patient informed of any privacy concerns related to visit: Yes Minutes spent on Phone/Video with Pt.: 30 Assessment & Plan Assessment & Plan (1) Morbid obesity: Code(s): E66.01 - Morbid (severe) obesity due to excess calories Category: Medical Plan: 1. Plan for lap sleeve gastrectomy including upper GI endoscopy. All tests has been completed and reviewed and the patient is cleared for the surgery. ?If diaphragmatic or ventral hernias are present at time of surgery, these will be repaired laparoscopically as well. Risks and complications were discussed in detail including possible conversion to an open procedure, anastomotic leak, bleeding requiring transfusion, small bowel obstruction, , DVT and pulmonary embolism, cardiac, or pulmonary complications, as adjunct faculty for medical terminology complications such as anastomotic ulcer, insufficient weight loss and vitamin deficiencies. I emphasized the importance of close follow-up, adherence to instructions and good communication. So far she has proven to be an excellent communicator and very compliant with all our directions accomplishing a great weight loss. I believe that she is an excellent candidate and she is ready. 2. The patient participated in a structured preoperative lifestyle intervention program supervised by a physician the 3 months preceding the surgical procedure. The lifestyle intervention included a structured nutritional plan with a specific daily protein intake goal, an exercise plan with a 2000 calorie burn weekly goal, weekly behavior modification guidance and completion of eight 1- hour online nutritional classes and passing successfully the corresponding quizzes. Adherence to preoperative care plan was demonstrated by completing an extensive preoperative work-up. Program participation was demonstrated by completing 4 visits with our medical team and by sharing weekly weight measurements weekly for 4 consecutive months via an approved body composition scale. Compliance to the lifestyle intervention was demonstrated by achieving a 7lbs weight-loss or 2.7% total body weight loss (TBWL). No medications were used to achieve this weight loss. 3. Change nutritional plan to one Isopure protein shake (ONE scoop in water), 2 Zone Perfect protein bars, one meal (10 forks of protein and 10 forks of salad or vegetables). 4. Don't skip the protein portion of your dinner. If you don't feel hungry, reduce equally the portions of your salad and protein 5. Exercise: continue the stationary bike for 300 calories daily. Goal is to burn 2000 calories per week 6. Continue to send me weight measurements weekly on Mondays
[2023-06-19 14:49] VITALS: BMI 40.3
== END 2023-06-19 14:59 | disposition home or self-care (01) ==
LOC: HO.HBS 09:08
PROVIDERS: PCP Internal Medicine; Visit Provider Surgery
DX: E66.01 Morbid (severe) obesity due to excess calories (principal)
CPT/HCPCS: 99214

== ENCOUNTER → 2023-06-19 09:08 | Outpatient (BNVA) | payer OTHER, SELFPAY | PROVIDERS: PCP Internal Medicine; Visit Provider Surgery ==

== ENCOUNTER 2023-07-05 15:00 | Outpatient (AMB) | payer OTHER, SELFPAY ==
--- NOTE | 2023-07-05 14:37 | MHC.WMTHER ---
Intake Intake Visit Reasons: (TV) BH Intake Allergies No Known Allergies Allergy (Verified 03/24/23 11:30) PFSH Surgical History (Updated 03/03/23 @ 08:13 by Rosie Engel CMA) Hx of section Hx of dilation and curettage Family History Mother Migraines Father No problems noted. Sister Asthma Sister Asthma Sister Asthma Brother No problems noted. Brother No problems noted. Brother Asthma Son No problems noted. Social History Alcohol intake: current Alcohol intake frequency: a few times a month Patient Tobacco Use Status: Former Tobacco user Behavioral Health Assessment Weight Management Therapy Therapy Notes Details Pt is looking to have weight loss surgery to help improve her her health outcomes and loose weight. She was in the program in 2021 however then found out she was . Pt denied any mental health treatment currently or in the past, inpatient or outpatient. She denied any problems in the past or currently with drugs or alcohol. Presenting Concerns Referral Source provider Reason for referral weight loss surgery evaluation Precipitating Event obesity Living Situation Current Living Situation Rent At risk of losing current housing? No Satisfied with current living situation? Yes Comments Pt lives with her and her son who is 13 and a 1 year old. Food/Weight/Diet Expectations of change weight loss History/Relationship with food Pt reported that she makes bad choices , snacks, soda, gum, juice, heavy breakfast, lots of seasonings, butter, heavy caloric rich foods. Will also skip meals and then eat large meals. Also reported eating fast food in the past. History/Relationship with weight Currently at her heaviest. Able to loose 30lbs in the past. She reported that she started to gain weight after having her son. Growing up, she reported being athletic and active. History/Relationship with dieting [facility]. She was in the program in 2021 but then had a baby. Binge Eating Do you frequently eat large amounts of food in short periods of time, not feeling physically hungry? No Do you feel out of control when you eat a large amount of food in a short period of time? No Do you eat large amounts of food rapidly and typically alone? No Night Eating Do you wake up at least once during the night to eat? No If you wake up in the night, do you find that it is necessary to eat something in order to fall back asleep? No Do you have little or no appetite in the morning and feel very hungry in the evening, often overeating between dinner and when you go to bed? No Social History Family history and relationship Pt was born and raised in [place] by her mother and father, three sisters and three brothers. She reported having a fun childhood and getting in trouble with her siblings. Pt was recently and had a baby. She has an 13 year old son with a previous partner. Parental/Familial trial court justice obligations child Developmental history and status no issues Social support , two friends who have also had weight loss surgery (one friend who referred her to the program) as well as sister in law. Community support none Orthodox/Spirituality Spiritual Cultural/Ethnic information Black, , and [place] Legal Involvement and History Current or historical involvement with the legal system? none Education Highest grade completed currently in school for human services Preferred learning style Auditory, Verbal, Written, Learn by doing and Visual Currently enrolled in educational program? Yes Interested in further educational program? 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 No Meaningful activities gym, wedding planning, reading, music, movies, [employer] [place] projects Financial Situation Describe current financial situation Occasional struggle Financial assistance? None Service Service? No Mental Health and Addiction Treatment Current/Past substance abuse? No Current/Past addictive behavior concerns? No Medical and Physical Health Summary Physical exam in the last year? Yes Pain Screening Current pain? No Pain in the last few months? Yes Medications Is the patient compliant with medications? Yes Does the patient have Sesay Guardian in place? Not applicable Does the patient use complimentary health approaches? No Trauma/Abuse History History of trauma? No Questionnaires PHQ-9 Over the last 2 weeks, how often have you been bothered by any of the following problems? 1. Little interest or pleasure in doing things: not at all 2. Feeling down, depressed, or hopeless: not at all 3. Trouble falling or staying asleep, or sleeping too much: not at all 4. Feeling tired or having little energy: not at all 5. Poor appetite or overeating: not at all 6. Feeling bad about yourself - or that you are a failure or have let yourself or your family down: not at all 7. Trouble concentrating on things, such as reading the newspaper or watching television: not at all 8. Moving or speaking so slowly that other people could have noticed. Or the opposite - being so fidgety or restless that you have been moving around a lot more than usual: not at all 9. Thoughts that you would be better off or of hurting yourself in some way: not at all Total score: 0 Source: Developed by Drs. Chemo Adan, Isabel De Leon, Denys Clements and colleagues, with an educational sandrita from [employer]. Assessment & Plan Assessment & Plan (1) Adjustment disorder, unspecified: Code(s): F43.20 - Adjustment disorder, unspecified (2) Obesity: Code(s): E66.9 - Obesity, unspecified Qualifiers: Obesity type: due to excess calories Obesity classification: adult class 2 (BMI 35 - 39.9) Serious obesity comorbidity presence: with serious comorbidity Body mass index: BMI 39.0-39.9 Qualified Code(s): E66.01 - Morbid (severe) obesity due to excess calories; Z68.39 - Body mass index [BMI] 39.0-39.9, adult Plan Patient has no mental health history and no serious barriers. She is cleared for surgery when ready. Coding Level of Care Code Nirali Raygoza ([id number]) Diagnoses Adjustment disorder, unspecified F43.20 Class 2 severe obesity due to excess calories with serious comorbidity and body mass index (BMI) of 39.0 to 39.9 in adult E66.01; Z68.39 Obesity type: due to excess calories Obesity classification: adult class 2 (BMI 35 - 39.9) Serious obesity comorbidity presence: with serious comorbidity Body mass index: BMI 39.0-39.9 Time Spent (min) 45
== END 2023-07-05 15:15 | disposition home or self-care (01) ==
LOC: HO.HBST 15:00
PROVIDERS: PCP Internal Medicine; Visit Provider Counselor Mental Health
DX: F43.20 Adjustment disorder, unspecified (principal); E66.01 Morbid (severe) obesity due to excess calories; Z68.39 Body mass index [BMI] 39.0-39.9, adult
CPT/HCPCS: 90791

== ENCOUNTER → 2023-07-05 15:00 | Outpatient (BNVA) | payer OTHER, SELFPAY | PROVIDERS: PCP Internal Medicine; Visit Provider Counselor Mental Health ==

== ENCOUNTER → 2023-07-12 11:10 | Outpatient (BNVA) | payer OTHER, SELFPAY | PROVIDERS: PCP Internal Medicine; Visit Provider Surgery ==

== ENCOUNTER 2023-07-13 08:14 | Outpatient (AMB) | payer OTHER, SELFPAY ==
--- NOTE | 2023-07-12 22:51 | A.OFFVIS_ITS ---
VS Expanded 07/12/23 22:52 Height 5 ft 5.5 in Weight 244 lb 2 oz BMI 40.0 Body Fat % 52.6 Body Fat Mass 128.4 Fat Free Mass 115.8 Visceral Fat Rating 21 Body Water % 32.3 Body Water Mass 79.3 Basal Metabolic Rate/Score 1,485 Intake Visit Reasons: TV Pre Op LSG 07/26/23 Allergies No Known Allergies Allergy (Verified 07/12/23 22:58) Medication List - Last Reconciled 07/12/23 by Murtaza Pelayo MD [id number] 600-50-300 mg (Triumeq) 1 tab PO DAILY cholecalciferol (vitamin D3) 125 mcg PO DAILY HPI HPI TV Pre Op LSG 07/26/23: Details: Start time: 1.30pm, End time: 2pm ?I spent 20 minutes speaking with the patient on the phone plus an additional 10 minutes reviewing and updating records for a total of 30 minutes HPI Comments Details: Overall weight loss: 8.8lbs, or 3.48% TBWL Is doing one Isopure protein shake (1/2 scoop in water), 2 Zone Perfect protein bars, one meal (10 forks of protein and 10 forks of salad or vegetables) Exercise: is doing stationary bike for 300 calories PFSH Surgical History (Updated 03/03/23 @ 08:13 by Rosie Engel CMA) Hx of section Hx of dilation and curettage Family History Mother Migraines Father No problems noted. Sister Asthma Sister Asthma Sister Asthma Brother No problems noted. Brother No problems noted. Brother Asthma Son No problems noted. Social History Alcohol intake: current Alcohol intake frequency: a few times a month Patient Tobacco Use Status: Former Tobacco user Physical Exam Vital Signs: BMI result Body Mass Index 40.0 Telehealth Telehealth Telehealth Platform: Telephone Location of provider rendering services: practice address Location of patient: address on file Patient Identification confirmed using: Name, : Yes Telehealth method: voice only Patient verbally consented to treatment: Yes Patient verbally consented to billing insurance company: Yes Patient informed of any privacy concerns related to visit: Yes Minutes spent on Phone/Video with Pt.: 30 Assessment & Plan Assessment & Plan (1) Morbid obesity: Code(s): E66.01 - Morbid (severe) obesity due to excess calories Category: Medical Plan: 1. Plan for lap sleeve gastrectomy including upper GI endoscopy. All tests has been completed and reviewed and the patient is cleared for the surgery. ?If diaphragmatic or ventral hernias are present at time of surgery, these will be repaired laparoscopically as well. Risks and complications were discussed in detail including possible conversion to an open procedure, anastomotic leak, bleeding requiring transfusion, small bowel obstruction, , DVT and pulmonary embolism, cardiac, or pulmonary complications, as assisted complications such as anastomotic ulcer, insufficient weight loss and vitamin deficiencies. I emphasized the importance of close follow-up, adherence to instructions and good communication. So far she has proven to be an excellent communicator and very compliant with all our directions accomplishing a great weight loss. I believe that she is an excellent candidate and she is ready. 2. Preop prescriptions were provided and explained the purpose of each one. Need to be purchased preop. Start Pantoprazole now as you get it from the pharmacy, 1 pill per day. Sucralfate and Zofran are for after surgery as needed. 3. Bowel prep: please do 7 packets ?of Miralax mixing each one with a an 8oz glass of water, crystal light, gatorade zero, or propel ?on 07/24/23 and the same amount on 07/25/23. The Miralax you begin with one packet at a time in 8oz water or crystal light, gatorade zero, or propel ?as early in the day as you can and you do them back to back until you finish them. Continue the protein shakes during? the bowel prep. 4. Needs to purchase 1oz medicine cups . 5. Needs to purchase Children's liquid Tylenol for postop pain control. 6. She needs to stop the Triumec on 07/20/23. You can re-start it on 08/03/23. Avoid aspirin, motrin, Advil, Aleve, Ibuprofen, Naproxyn. Tylenol is OK. 7. She needs to purchase the Celebrate 4:1 protein shakes from the hospital's gift shop. 8. Will do basic preop blood work-up any day between 07/13/23 and Monday07/14/23 fasting for 12 hours and is scheduled to see the Anesthesiologist prior to the day of surgery. 9. Importance of adherence to postop folllow-up and recommendations was underscored and she understands that. 10. Stop food and bars as of Monday07/14/23 and continue with 2 Isopure INFUSIONS protein shakes (HALF scoop EACH in 8oz water) at 11am-1pm, and 2pm-4pm and THREE more Isopure protein shakes with ONE scoop EACH in 8oz of almond milk at 5pm-7pm, 8pm-10pm and 11pm-1am. 11. No soups, broths or V8 12. The patient's?medical?history has been reviewed and they are considered low risk for post op DVT and therefore DVT prophylaxis is not considered necessary. Travel after surgery was reviewed. The patient has not disclosed any travel plans during the first 30 days after surgery and they have been advised that within the first 30 days after surgery any bus, plane, train or car travel over 2 hours in duration is contraindicated due to the possibility of developing blood clots from immobility. Any travel, needs to include periods of ambulation of 10 minutes in duration every 2 hours.? Patient was instructed to discuss any plans for travel during this period with their bariatric surgeon.? 13. Please take at the day of surgery the following medications: NONE 14. Stop any control pills and don't use them for one month after surgery 15. Absolutely no smoking or vaping, or marijuana until the surgery and for at least the first 4 weeks. Only nicotine patches are allowed. 16. Send me weight measurements tomorrow 07/13/23, Monday07/20/23 and then on Monday07/26/23, the day of surgery before you go to the hospital. 17. Avoid any steroids by mouth for any reason. Let me know if someone prescribes them to you 18. These instructions supersede anything else you read in the handbook, anything you watched in videos or classes or you were told by any other provider. If there is any conflict, you follow the above instructions and nothing else. Orders: Orders Comprehensive Met. Panel Today E66.01 - Morbid (severe) obesity due to excess calories Lipid Panel Today E66.01 - Morbid (severe) obesity due to excess calories Type and Screen Today E66.01 - Morbid (severe) obesity due to excess calories C Reactive Protein Today E66.01 - Morbid (severe) obesity due to excess calories Complete Blood Count Auto Diff Today E66.01 - Morbid (severe) obesity due to excess calories Insulin Today E66.01 - Morbid (severe) obesity due to excess calories TSH reflex Free T4 Today E66.01 - Morbid (severe) obesity due to excess calories Prothrombin Time INR Today E66.01 - Morbid (severe) obesity due to excess calories Hemoglobin A1c Today E66.01 - Morbid (severe) obesity due to excess calories Partial Thromboplastin Time Today E66.01 - Morbid (severe) obesity due to excess calories Medications: New sucralfate 10 mL PO BID 600 mL 2RF K21.9 - Gastro-esophageal reflux disease without esophagitis ondansetron HCl Only take one every 12 hours as needed if you have nausea 4 mg PO Q12H 20 tabs 0RF nausea and vomiting R11.0 - Nausea polyethylene glycol 3350 Mix each measuring cup with 8oz of water, Crystal light, or Gatorade zero, or Propel and do 7 measuring cups on 07/24/23 and another 7 measuring cups on 07/25/23 17 grams PO DAILY 238 grams 0RF Z01.818 - Encounter for other preprocedural examination pantoprazole 40 mg PO DAILY 90 tabs 0RF K21.9 - Gastro-esophageal reflux disease without esophagitis
[2023-07-12 22:52] VITALS: BMI 40.0
== END 2023-07-13 14:04 | disposition home or self-care (01) ==
PROVIDERS: PCP Internal Medicine; Visit Provider Surgery
DX: E66.01 Morbid (severe) obesity due to excess calories (principal)
CPT/HCPCS: 99214

== ENCOUNTER → 2023-07-13 08:14 | Outpatient (BNVA) | payer OTHER, SELFPAY | LOC: CF 13:18 | PROVIDERS: PCP Internal Medicine; Visit Provider Surgery | DX: E66.01 Morbid (severe) obesity due to excess calories (principal); K21.9 Gastro-esophageal reflux disease without esophagitis; R11.0 Nausea; Z01.818 Encounter for other preprocedural examination ==

== ENCOUNTER → 2023-07-19 14:42 | Outpatient (BNVA) | payer OTHER, SELFPAY | PROVIDERS: PCP Internal Medicine; Visit Provider Surgery ==

== ENCOUNTER 2023-07-26 | Outpatient (REF) | payer OTHER, SELFPAY ==
[2023-07-13 13:41] LABS: MANUAL DIFF FLAG NO
[2023-07-13 14:09] LABS: Basophils Absolute Auto 0.1 X10*3/uL (0.0-0.2); Basophils Percent Auto 0.9 % (0-2); Eosinophils Absolute Auto 0.8 X10*3/uL (0.0-0.4); Eosinophils Percent Auto 9.4 % (0-4); Hematocrit 38.1 % (37.0-47.0); Hemoglobin 13.4 g/dl (12.0-16.0); Imm Gran Abs Auto 0.02 X10*3/uL (0.00-0.03); Imm Gran Pct Auto 0.2 % (0.0-0.4); Lymphocytes Absolute Auto 3.7 X10*3/uL (1.2-4.9); Lymphocytes Percent Auto 42.5 % (20-40); Mean Corpuscular HGB Conc 35.2 g/dl (31.0-35.0); Mean Corpuscular Hemoglobin 25.8 pg (27.0-33.0); Mean Corpuscular Volume 73.3 fL (80.0-98.0); Mean Platelet Volume 10.1 fL (9.4-12.3); Monocytes Absolute Auto 0.6 X10*3/uL (0.1-1.2); Monocytes Percent Auto 6.4 % (2-11); Neutrophils Absolute Auto 3.5 x10*3/uL (2.0-8.3); Neutrophils Percent Auto 40.6 % (45-73); Platelet Count 308 X10*3/uL (160-400); Red Cell Distribution Width 13.9 % (11.0-16.0); White Blood Count 8.7 X10*3/uL (4.8-10.8)
[2023-07-13 14:14] LABS: Prothrombin Time 11.7 SEC (11.1-13.3)
[2023-07-13 14:17] LABS: Partial Thromboplastin Time 33.6 SEC (26.0-36.8)
[2023-07-13 14:21] LABS: Estimated Average Glucose 117 mg/dL; Hemoglobin A1c % 5.7 % (<6.0)
[2023-07-13 15:11] LABS: Alanine Aminotransferase 12 U/L (0-31); Albumin Level 4.4 g/dL (3.5-5.0); Alkaline Phosphatase 57 U/L (39-117); Anion Gap 12 (12-20); Aspartate Amino Transferase 15 U/L (5-31); Bilirubin Total 0.5 mg/dL (0.0-1.0); Blood Urea Nitrogen 10 mg/dL (9-16); C Reactive Protein 0.81 mg/dL (< or = 0.50); Calcium 9.4 mg/dL (8.4-10.2); Carbon Dioxide 27 mmol/L (22-29); Chloride 106 mmol/L (96-108); Cholesterol 192 mg/dL (<200); Estimated Glomerular Filt Rate > 60; Glucose Random 110 mg/dL (60-115); HDL Cholesterol 59 mg/dL (>40); LDL Cholesterol Calculated 116 mg/dL (<100); Potassium 3.9 mmol/L (3.3-5.1); Sodium 141 mmol/L (135-145); Total Protein 8.1 g/dL (6.5-8.0); Triglycerides 85 mg/dL (<150)
[2023-07-13 15:17] LABS: Insulin 21 uU/mL (2-29); TSH reflex Free T4 0.73 uIU/mL (0.32-4.0)
[2023-07-19 09:12] VITALS: BMI 41.3
--- NOTE | 2023-07-24 13:15 | P.CONAN_ITS ---
HPI - Anesthesia Eval Consult details Narrative: 33yo F for Gastrectomy Sleeve-EGD, possible diaphragmatic hernia, possible ventral hernia, possible open PMFSH Active Problems Active Problems: All Active Problems Obesity (Acute) Abnormal EKG (Acute) Vitamin D deficiency (Acute) Vitamin B12 deficiency (Acute) Adjustment disorder, unspecified (Acute) HIV (human immunodeficiency virus infection) (Acute) Morbid obesity (Acute) Past Medical History Medical History (Updated 07/19/23 @ 09:06 by Michell Grijalva RN) Glucose intolerance (impaired glucose tolerance) Umbilical hernia Family History Family History Mother Migraines Father No problems noted. Sister Asthma Sister Asthma Sister Asthma Brother No problems noted. Brother No problems noted. Brother Asthma Son No problems noted. Surgical History Surgical History (Updated 03/03/23 @ 08:13 by Rosie Engel CMA) Hx of section Hx of dilation and curettage Social History Social History Are you a primary career services coordinator to a significant other at home: No Do you presently have visiting nurse or other home services: No Alcohol intake: current Alcohol intake frequency: a few times a month Patient Tobacco Use Status: Former Tobacco user Meds Allergies Allergy/AdvReac Type Severity Reaction Status Date / Time No Known Allergies Allergy Verified 07/12/23 22:58 Home Medications ?Medication ?Instructions ?Recorded ?Confirmed ?Last Taken ?Type abacavir 600 mg-dolutegravir 50 1 tab PO BEDTIME 06/08/21 07/19/23 Unknown History mg-lamivudine 300 mg tablet (Triumeq) Exam Height,Weight and Vital Signs: Height 5 ft 5 in Weight 112.491 kg Pertinent Lab Results Pertinent Lab Results: Laboratory Tests 07/13/23 07/13/23 13:32 13:40 WBC 8.7 RBC 5.20 Hgb 13.4 Hct 38.1 MCV 73.3 L MCH 25.8 L MCHC 35.2 H RDW 13.9 Plt Count 308 MPV 10.1 Immature Gran % (Auto) 0.2 Neut % (Auto) 40.6 L Lymph % (Auto) 42.5 H [place] % (Auto) 6.4 Eos % (Auto) 9.4 H Baso % (Auto) 0.9 Lymph # (Auto) 3.7 [place] # (Auto) 0.6 Eos # (Auto) 0.8 H Baso # (Auto) 0.1 Abs Immat Gran (auto) 0.02 Absolute Neuts (auto) 3.5 Absolute Nucleated RBC 0.000 Nucleated RBC % (auto) 0.0 PT 11.7 INR 1.0 APTT 33.6 Sodium 141 Potassium 3.9 Chloride 106 Carbon Dioxide 27 Anion Gap 12 BUN 10 Creatinine 0.82 Estim Creat Clear Calc TNP Estimated GFR > 60 Random Glucose 110 Estimat Average Glucose 117 Hemoglobin A1c % 5.7 Insulin Level 21 Calcium 9.4 Total Bilirubin 0.5 AST 15 ALT 12 Alkaline Phosphatase 57 C-Reactive Protein 0.81 H Total Protein 8.1 H Albumin 4.4 Triglycerides 85 Cholesterol 192 LDL Cholesterol, Calc 116 H HDL Cholesterol 59 TSH 0.73 Blood Type O Positive Antibody Screen NEGATIVE Narrative Narrative: EKG 03/2023 Vent. Rate : 082 BPM Atrial Rate : 082 BPM P-R Int : 162 ms QRS Dur : 070 ms QT Int : 358 ms P-R-T Axes : 022 052 -11 degrees QTc Int : 418 ms Normal sinus rhythm Nonspecific T wave abnormality Abnormal ECG When compared with ECG of 21-JUN-2021 08:46, No significant change was found Stress 04/2023 Protocol: [place] Max HR: 160 BPM 86% of Pred: 185 BPM Max BP: 164/084 mmHG Max Work Load: 7.0 METS Exercise stress test exercise 5 min 31 sec of [place] protocol achieving 86%, with mild to moderate SOB, without chest discomfort, with isolated PAC, with normotensive response to exercise. without EKG changes. Breathing returned to baseline with rest. Test reviewed with Dr. Joyner. Assessment and Plan Assessment Anesthesia Assessment: Chart Reviewed
== END 2023-07-26 00:01 | disposition home or self-care (01) ==
LOC: HO.PAT
PROVIDERS: PCP Internal Medicine; Visit Provider Surgery
DX: Z01.812 Encounter for preprocedural laboratory examination (principal); E66.01 Morbid (severe) obesity due to excess calories
CPT/HCPCS: 36415; 80053; 80061; 83036; 83525; 84443; 85025; 85610; 85730; 86140; 86850; 86900; 86901